=== PATIENT | female | born 1985 | race African-American/Black ===

== ENCOUNTER 2016-10-03 08:15 | Emergency (ER) | payer BC, OTHER ==
[2016-10-03] MEDS ORDERED: LIDOCAINE 1% INJ-PF (10 MG/ML) 30 ML SDV INJ ONE (09:20)
--- NOTE | 2016-10-03 09:23 | ER Document Report ---
HPI - HPI Patient complains to provider of: HAND LACERATION Onset: This morning Onset/Duration: Sudden Quality of pain: Achy Severity: Mild Pain Level: 1 Context: Patient presents emergency department with complaints of left hand, palm laceration. She reports that she was meal prepping cutting an avocado when she cut her hand this morning. She reports her tetanus is up-to-date. She is right -hand dominant. No active bleeding. Does not take anticoagulants. Denies other symptoms such as fever vomiting diarrhea. 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 IN LAST 30 DAYS: No - HEENT HEENT: Atraumatic, Normocephalic - NECK Neck: Supple - RESPIRATORY Respiratory: Breath Sounds Normal, No Respiratory Distress O2 Sat by Pulse Oximetry: 100 - CARDIOVASCULAR Cardiovascular: Regular Rate - MUSCULOSKELETAL/EXTREMETIES Musculoskeletal/Extremeties: MAEW, FROM, Tender - Left palm tender 1.5 cm horizontal laceration noted no active bleeding, flexes/extends hand without problems - NEURO Level of Consciousness: Awake, Alert, Appropriate Motor/Sensory: No Motor Deficit - DERM Integumentary: Warm, Dry Course - Re-evaluation Re-evalutation: 10/03/16 10:07 She instructed on signs and symptoms of infection. Instructed to return here for suture removal. She verbalized understanding to all instructions. - Vital Signs Vital signs: Temp Pulse Resp BP Pulse Ox 98.9 F 66 16 113/65 100 10/03/16 08:23 10/03/16 08:23 10/03/16 08:23 10/03/16 08:23 10/03/16 08:23 Procedures - Laceration/Wound Repair Left Hand Wound length (cm): 1.5 Wound's Depth, Shape: Superficial Laceration pre-procedure: Shur-Clens applied Anesthetic type: 1% Lidocaine Volume Anesthetic (mLs): 250 Wound explored: Clean Wound Repaired With: Sutures Suture Size/Type: 5:0 Number of Sutures: 3 Hands front picture: 1 - 1.5 CM HORIZONTAL LAC CLOSED WITH 3 SUTURES, PT TOLERATED PROCEDURE WELL Discharge - Discharge Clinical Impression: Hand laceration Condition: Stable Disposition: HOME, SELF-CARE Instructions: Laceration Care ([facility]), Soap Cleansing ([facility]) Additional Instructions: *You have been treated for laceration with suture repair *Take Tylenol as indicated for the pain *Monitor the site for signs of infection such as increasing pain, redness, swelling, warmth *Keep the area clean *Follow up here for suture removal in 7-10 days *Return to ED for signs of infection, worsening condition, changes, needs Referrals: ANDREA COLES MD [Primary Care Provider] - Follow up as needed
[2016-10-03 10:19] VITALS: BP 104/57
== END 2016-10-03 10:20 | disposition home or self-care (01) ==
LOC: ER 08:15
PROC: 0HQGXZZ Repair Left Hand Skin, External Approach (ICD-10-PCS; principal; 2016-10-03)
DX: S61.412A Laceration without foreign body of left hand, initial encounter (principal); W26.0XXA Contact with knife, initial encounter; Y93.G1 Activity, food preparation and clean up
CPT/HCPCS: 99282

== ENCOUNTER 2017-07-15 15:26 | Emergency (ER) | payer OTHER ==
[2017-07-15] MEDS ORDERED: KETOROLAC TROMETHAMINE 60 MG/2 ML SDV IM ONE (16:16)
[2017-07-15] MEDS ORDERED: PROCHLORPERAZINE EDISYLATE INJ 10 MG/2 ML VIAL IM ONE (16:16)
[2017-07-15] MEDS ORDERED: MECLIZINE HCL 25 MG TABLET PO ONE (16:16)
--- NOTE | 2017-07-15 16:17 | ER Document Report ---
HPI - HPI Patient complains to provider of: viral symptoms Pain Level: 2 Context: Patient is a 31 year old female who presents to the ED complaining of head aches , vertigo, sinus congestion and nausea for ten days that comes and goes. She admits to recent sick contacts at work. Was seen at urgent care and given zofran. Has not followed up with PCP Dr Coles. States she has a history of veritgo that required ENT treatment, also h/o migraines but denies that presently, denies vision changes, near syncope, weakness - REPRODUCTIVE LMP: 07/10/17 Reproductive: DENIES: : Past Medical History - Social History Smoking Status: Never Smoker Family History: Reviewed & Not Pertinent Renal/ Medical History: Denies: Hx Peritoneal Dialysis - Immunizations Immunizations up to date: Yes Hx Diphtheria, Pertussis, Tetanus Vaccination: No Vertical Provider Document - CONSTITUTIONAL Agree With Documented VS: Yes Notes: PHYSICAL EXAM GENERAL: Alert, interacts well. HEAD: Normocephalic, atraumatic. EYES: Pupils equal, round, and reactive to light. Extraocular movements intact. ENT: Oral mucosa moist, tongue midline. NECK: Full range of motion. Supple. Trachea midline. LUNGS: Clear to auscultation bilaterally, no wheezes, rales, or rhonchi. No respiratory distress. HEART: Regular rate and rhythm. No murmurs, gallops, or rubs. ABDOMEN: Soft, nondistended, nontender. No guarding, rebound, or rigidity.. Bowel sounds present in all 4 quadrants. EXTREMITIES: Moves all 4 extremities spontaneously. No edema, radial and dorsalis pedis pulses 2/4 bilaterally. No cyanosis. NEUROLOGICAL: Face symmetric. Tongue protrudes midline. Extraocular motions intact. Pupils are 2 mm and equally reactive. Normal speech, normal gait. 5 out of 5 strength in both the distal and proximal upper and lower extremities bilaterally. Sensation is grossly intact throughout. Finger to nose testing normal. Pronator drift normal. PSYCH: Normal affect, normal mood. SKIN: Warm, dry, normal turgor. No rashes or lesions noted. - INFECTION CONTROL TRAVEL OUTSIDE OF THE [place] IN LAST 30 DAYS: No - RESPIRATORY O2 Sat by Pulse Oximetry: 100 Course - Re-evaluation Re-evalutation: Patient presents with multiple vague complaints that did not appear to be concerning for any acute life-threatening pathology. Consistent with viral syndrome and her underlying vertigo. Vitals are within normal limits at triage and at time of discharge. Physical examination is unremarkable. Patient has tolerated oral intake without difficulty. Patient was not noted to be in distress at any point during their ER visit. At this time, based on the reassuring evaluation, I do not suspect an acute [place], pulmonary embolus, aortic dissection, acute intra-abdominal pathology, stroke, or sepsis.Will discharge with return precautions and follow-up recommendations. Verbal discharge instructions given a the bedside and opportunity for questions given. Medication warnings reviewed. Patient is in agreement with this plan and has verbalized understanding of return precautions and the need for primary care follow-up in the next 24-72 hours. - Vital Signs Vital signs: Temp Pulse Resp BP Pulse Ox 98.8 F 60 16 127/71 H 100 07/15/17 15:49 07/15/17 15:49 07/15/17 15:49 07/15/17 15:49 07/15/17 15:49 Discharge - Discharge Clinical Impression: Vertigo, Viral syndrome Condition: Good Disposition: HOME, SELF-CARE Instructions: Vertigo ([facility]), Viral Syndrome ([facility]) Prescriptions: Meclizine HCl [Antivert 25 mg Tablet] 25 mg PO TID PRN #21 tablet PRN Reason: Metoclopramide HCl [Reglan 10 mg Tablet] 1 - 2 tab PO ASDIR PRN #25 tablet PRN Reason: Forms: Return to Work Referrals: TIANA COLES NP [Primary Care Provider] - Follow up in 1 week NICOLE CRAIN DO [ASSOCIATE] - Follow up as needed
[2017-07-15 16:39] LABS: APPEARANCE,URINE CLEAR; BILIRUBIN,URINE NEGATIVE (NEGATIVE); COLOR,URINE YELLOW; GLUCOSE, URINE NEGATIVE (NEGATIVE); KETONES,URINE NEGATIVE (NEGATIVE); LEUKOCYTE ESTERASE,URINE NEGATIVE (NEGATIVE); NITRITE,URINE NEGATIVE (NEGATIVE); PROTEIN,URINE NEGATIVE (NEGATIVE); URINE SPECIFIC GRAVITY 1.015; UROBILINOGEN,URINE NEGATIVE mg/dL (<2.0)
[2017-07-15 17:44] VITALS: BP 120/75
== END 2017-07-15 18:01 | disposition home or self-care (01) ==
LOC: ER 15:26
DX: R42 Dizziness and giddiness (principal); B34.9 Viral infection, unspecified; R51 Headache; R09.81 Nasal congestion; R11.0 Nausea
CPT/HCPCS: 99283; 81025; 81001; J1885; J0780

== ENCOUNTER 2020-04-23 09:20 | Emergency (ER) | payer SELFPAY ==
[2020-04-23] MEDS ORDERED: LIDOCAINE 2% VISCOUS SOLN 15 ML UDCUP PO ONE (10:20)
[2020-04-23] MEDS ORDERED: DEXAMETHASONE 4 MG TABLET PO ONE (10:20)
[2020-04-23] MEDS ORDERED: HYDROCODONE/ACETAMINOPHEN 5-325 MG TABLET PO ONE (10:21)
[2020-04-23] MEDS ORDERED: ACETAMINOPHEN SOLN 325 MG/10.15 ML UDCUP PO ONE (10:21)
--- NOTE | 2020-04-23 10:22 | ER Document Report ---
HPI - HPI Patient complains to provider of: Sore throat Time Seen by Provider: 04/23/20 09:42 Onset: Yesterday Onset/Duration: Worse Quality of pain: Achy Pain Level: 1 Context: Patient presents complaining of sore throat symptoms since yesterday. Patient states she noticed redness and exudate to the back of her throat. Patient did see a doctor yesterday for this issue. Patient complains of worsening pain today with exudate. Associated Symptoms: Sore throat. denies: Nonproductive cough, Productive cough, Earache, Fever Exacerbated by: Denies Relieved by: Denies Similar symptoms previously: Yes Recently seen / treated by doctor: Yes - ROS ROS below otherwise negative: Yes Systems Reviewed and Negative: Yes All other systems reviewed and negative - CONSTITUTIONAL Constitutional: DENIES: Fever, Chills - EENT EENT: REPORTS: Sore Throat. 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 IN LAST 30 DAYS: No - HEENT HEENT: Atraumatic, Normocephalic, Pharyngeal Exudate, Pharyngeal Tenderness, Pharyngeal Erythema. negative: Tympanic Membrane Red, Tympanic Membrane Bulging - NECK Neck: Lymphadenopathy-Left, Lymphadenopathy-Right - RESPIRATORY Respiratory: Breath Sounds Normal, No Respiratory Distress - CARDIOVASCULAR Cardiovascular: Regular Rate, Regular Rhythm, No Murmur - BACK Back: Normal Inspection - MUSCULOSKELETAL/EXTREMETIES Musculoskeletal/Extremeties: MAEW - NEURO Level of Consciousness: Awake, Alert, Appropriate Motor/Sensory: No Motor Deficit - DERM Integumentary: Warm, Dry, No Rash Course - Re-evaluation Re-evalutation: 04/23/20 12:15 Throat culture is pending at this time, patient with negative mono test. Will treat for tonsillitis. No concern for [employer]. Patient able to manage oral secretions. Patient nontoxic in appearance at this time. - Vital Signs Vital signs: Temp Pulse Resp BP Pulse Ox 99.0 F 87 18 113/75 98 04/23/20 10:11 04/23/20 10:11 04/23/20 10:11 04/23/20 10:11 04/23/20 10:11 - Laboratory Laboratory results interpreted by me: 04/23/20 16:58 Labs- All tests 24 hr 04/23/20 10:25 Monotest NEGATIVE Discharge - Discharge Clinical Impression: Tonsillitis Condition: Stable Disposition: HOME, SELF-CARE Instructions: Corticosteroid Medication ([facility]), Sore Throat ([facility]), Tonsillitis ([facility]) Additional Instructions: Return immediately for any new or worsening symptoms Followup with your primary care provider, call tomorrow to make a followup appointment Throat culture is pending, we will call if you need any different treatment Forms: Return to Work Referrals: [facility] [Provider Group] - Follow up as needed [facility] [Provider Group] - Follow up as needed
[2020-04-23] MEDS ORDERED: PENICILLIN G BENZATHINE 1.2 MILLION UNIT/2 ML DISP.SYRIN IM ONE (11:40)
[2020-04-23 12:23] VITALS: BP 115/70
== END 2020-04-23 12:23 | disposition home or self-care (01) ==
LOC: ER 09:20
DX: J03.90 Acute tonsillitis, unspecified (principal)
CPT/HCPCS: 99284; 96372; 36415; 87070; 86308; J8540; J3490 ×2; J0561

== ENCOUNTER 2020-06-06 08:41 | Emergency (ER) | payer OTHER ==
[2020-06-06 10:12] LABS: A TYPE INFLUENZA AG NEGATIVE (NEGATIVE); B INFLUENZA AG NEGATIVE (NEGATIVE)
--- NOTE | 2020-06-06 10:34 | ER Document Report ---
HPI - HPI Time Seen by Provider: 06/06/20 09:18 Pain Level: 4 Context: Patient is a 34-year-old female presents emergency department with a chief complaint of a sore throat. Patient states that she has history of strep throat in the past. 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 She does not know if she has had contact with anybody who tested positive for COVID-19. - CONSTITUTIONAL Constitutional: DENIES: Fever, Chills - EENT EENT: REPORTS: Sore Throat - REPRODUCTIVE LMP: now Reproductive: DENIES: : - MUSCULOSKELETAL Musculoskeletal: DENIES: Extremity pain - DERM Skin Color: Normal Skin Problems: None Past Medical History - Social History Smoking Status: Never Smoker Chew tobacco use (# tins/day): No Frequency of alcohol use: Occasional Drug Abuse: None Family History: Reviewed & Not Pertinent Renal/ Medical History: Denies: Hx Peritoneal Dialysis - Immunizations Immunizations up to date: Yes Hx Diphtheria, Pertussis, Tetanus Vaccination: No Vertical Provider Document - CONSTITUTIONAL Agree With Documented VS: Yes Exam Limitations: No Limitations General Appearance: No Apparent Distress - INFECTION CONTROL TRAVEL OUTSIDE OF THE [place] IN LAST 30 DAYS: No - HEENT HEENT: Atraumatic, Normocephalic, PERRLA, Pharyngeal Exudate, Pharyngeal Tenderness, Pharyngeal Erythema. negative: Conjuctival Injection, Tympanic Membrane Red, Tympanic Membrane Bulging - NECK Neck: Normal Inspection, Supple, Lymphadenopathy-Right. negative: Lymphadenopathy-Left - RESPIRATORY Respiratory: Breath Sounds Normal, No Respiratory Distress - CARDIOVASCULAR Cardiovascular: Regular Rate, Regular Rhythm Pulses: Normal: Radial - MUSCULOSKELETAL/EXTREMETIES Musculoskeletal/Extremeties: FROM - NEURO Level of Consciousness: Awake, Alert, Appropriate Motor/Sensory: No Motor Deficit, No Sensory Deficit - DERM Integumentary: Warm, Dry, No Rash Course - Re-evaluation Re-evalutation: 06/06/20 11:07 Patient has exudate on her right tonsil and is currently inflamed. Rapid strep and flu tests are negative. We will treat the patient with penicillin and Decadron to help with inflammation and to treat exudative pharyngitis. The patient was evaluated during the global COVID-19 pandemic and that diagnosis was suspected/considered upon their initial presentation. Uvula is midline. No evidence of a peritonsillar abscess. Their evaluation, treatment and testing was consistent with current guidelines for patients who present with complaints or symptoms that may be related to COVID-19. Follow-up precautions were given. Verbal discharge instructions were given to the patient. They verbalized understanding. They are stable for discharge. - Vital Signs Vital signs: Temp Pulse Resp BP Pulse Ox 98.9 F 93 16 119/79 96 06/06/20 08:45 06/06/20 08:45 06/06/20 08:45 06/06/20 08:45 06/06/20 08:45 - Laboratory Results Critical Laboratory Results Reviewed: No Critical Results - Radiology Results Critical Radiology Results Reviewed: No Critical Results Discharge - Discharge Clinical Impression: Exudative pharyngitis, Person under investigation for COVID-19 Condition: Stable Disposition: HOME, SELF-CARE Instructions: COVID-19 Guidance for Persons Under Investigation, Sore Throat ([facility]) Additional Instructions: You were seen in the emergency department for sore throat. You are given ant ibiotics and steroids to help with your sore throat. Please follow-up with ENT in regards to this visit, as you have been having recurrent strep infections. As a person under investigation for COVID-19, the [place] Department of Health and Human Services (division on public health) advises you to adhere to the following guidance until your test results are reported to you. If your test result is positive, you will receive additional information from your provider and your local health department at that time. Remain at home until you are cleared by the health provider or public health authorities. Keep a log of visitors to your home, notify any visitors to your home of your isolation status. If you plan to move to a new address or leave the [facility], notify the local health department in your [facility]. Call your Doctor or seek care if you have an urgent medical need. Before seeking medical care, call him to get instructions from the provider before arriving at the medical office, clinic, or hospital. Notify them that you are being tested for the virus (COVID-19) so that arrangements can be made, as necessary, to prevent transmission to others in the healthcare setting. Next, notify the local health department in your [facility]. Prescriptions: Phenol/Sodium Phenolate [Chloraseptic Sore Throat [place] 177 ml] 2 sprays MM Q2HP PRN #1 bottle PRN Reason: Referrals: SEAN TABARES MD [ACTIVE STAFF] - Follow up in 1 month
[2020-06-06] MEDS ORDERED: PENICILLIN G BENZATHINE 1.2 MILLION UNIT/2 ML DISP.SYRIN IM ONE (11:05)
[2020-06-06] MEDS ORDERED: DEXAMETHASONE SOD PHOS INJ 10 MG/1 ML VIAL IM ONE (11:06)
[2020-06-06] MEDS ORDERED: HYDROCODONE/ACETAMINOPHEN 5-325 MG TABLET PO ONE (11:40)
[2020-06-06 11:49] VITALS: BP 133/93
== END 2020-06-06 12:04 | disposition home or self-care (01) ==
LOC: ER 08:41
DX: J02.9 Acute pharyngitis, unspecified (principal); Z20.822 Contact with and (suspected) exposure to COVID-19
CPT/HCPCS: 99284; 96372; 87070; 87880; 87635; 87077; 87804; J0561; J1100; C9803